=== PATIENT | female | born 1965 | race Two or more races ===

== ENCOUNTER 2018-06-30 19:08 | Emergency (ER) | payer OTHER ==
[~2018-06-30] VITALS: Ht 170.2 cm; Wt 90.7 kg
[~2018-06-30 19:08] MED LIST: PANADOL EXTRA500 MG
[2018-06-30] MEDS ORDERED: SYNTHROID75 MCG (19:34)
[2018-06-30] MEDS ORDERED: HYZAAR 100-251 EACH (19:34)
[2018-06-30] MEDS ORDERED: SEPTRA (19:35)
[2018-06-30] MEDS ORDERED: CIPRODEX OTIC7.5 ML OT (20:49)
[2018-06-30] MEDS ORDERED: CEFDINIR300 MG PO (20:49)
== END 2018-06-30 21:03 | disposition home or self-care (01) ==
LOC: ER 19:08
DX: H60.8X1 Other otitis externa, right ear (principal); H66.93 Otitis media, unspecified, bilateral

== ENCOUNTER 2019-05-23 08:56 | Emergency (ER) | payer OTHER ==
[~2019-05-23] VITALS: Ht 167.6 cm; Wt 88.5 kg
[~2019-05-23 08:56] MED LIST changes: +CEFDINIR300 MG PO; +CIPRODEX OTIC7.5 ML OT; +HYZAAR 100-251 EACH; +SEPTRA; +SYNTHROID75 MCG
== END 2019-05-23 17:22 | disposition home or self-care (01) ==
LOC: ER 08:56
DX: K57.92 Diverticulitis of intestine, part unspecified, without perforation or abscess without bleeding (principal); K80.20 Calculus of gallbladder without cholecystitis without obstruction; R10.31 Right lower quadrant pain

== ENCOUNTER 2019-10-08 18:42 | Emergency (ER) | payer OTHER ==
[~2019-10-08] VITALS: Ht 170.2 cm; Wt 89.8 kg
[2019-10-09] MEDS ORDERED: PRILOSEC OTC20 MG PO (23:57)
[2019-10-09] MEDS ORDERED: DICY20TA PO (23:57)
[2019-10-09] MEDS ORDERED: CIPRO500 MG PO (23:57)
== END 2019-10-08 23:57 | disposition home or self-care (01) ==
LOC: ER 18:42
DX: R10.13 Epigastric pain (principal); K66.0 Peritoneal adhesions (postprocedural) (postinfection)

== ENCOUNTER 2019-10-09 15:43 | Emergency (ER) | payer OTHER ==
[~2019-10-09] VITALS: Ht 170.2 cm; Wt 89.8 kg
[2019-10-09] MEDS ORDERED: PRILOSEC OTC20 MG PO (23:57)
[2019-10-09] MEDS ORDERED: CIPRO500 MG PO (23:57)
[2019-10-09] MEDS ORDERED: DICY20TA PO (23:57)
== END 2019-10-10 00:43 | disposition home or self-care (01) ==
LOC: ER 15:43
DX: K52.89 Other specified noninfective gastroenteritis and colitis (principal)

== ENCOUNTER 2022-01-30 14:05 | Outpatient (CLI) | payer OTHER ==
[~2022-01-30 14:05] MED LIST changes: +CIPRO500 MG PO; +DICY20TA PO; +PRILOSEC OTC20 MG PO
== END 2022-01-30 14:16 | disposition home or self-care (01) ==
LOC: SONOGRAMA 14:05
PROVIDERS: ATTEND Orthopaedic Surgery
DX: R19.00 Intra-abdominal and pelvic swelling, mass and lump, unspecified site (principal); M54.50 Low back pain, unspecified; M79.641 Pain in right hand

== ENCOUNTER 2022-01-30 15:57 | Outpatient (CLI) | payer OTHER | END 2022-01-30 16:06 | disposition home or self-care (01) | LOC: LAB 15:57 | DX: N91.2 Amenorrhea, unspecified (principal); N39.0 Urinary tract infection, site not specified ==

== ENCOUNTER 2022-11-17 21:23 | Emergency (ER) | payer OTHER ==
[~2022-11-17] VITALS: Ht 167.6 cm; Wt 90.7 kg
== END 2022-11-17 22:13 | disposition home or self-care (01) ==
LOC: ER 21:23
DX: M54.32 Sciatica, left side (principal)

== ENCOUNTER 2022-11-20 07:33 | Outpatient (CLI) | payer OTHER | END 2022-11-20 07:36 | disposition home or self-care (01) | LOC: NUCLEAR 07:33 | PROVIDERS: ATTEND General Practice | DX: I73.9 Peripheral vascular disease, unspecified (principal) ==

== ENCOUNTER 2022-12-11 06:31 | Outpatient (CLI) | payer OTHER | END 2022-12-11 06:37 | disposition home or self-care (01) | LOC: LAB 06:31 | DX: D64.9 Anemia, unspecified (principal); N39.0 Urinary tract infection, site not specified; E87.1 Hypo-osmolality and hyponatremia; E11.9 Type 2 diabetes mellitus without complications; E03.8 Other specified hypothyroidism; C18.9 Malignant neoplasm of colon, unspecified; E78.2 Mixed hyperlipidemia; K92.1 Melena; R80.8 Other proteinuria; E55.9 Vitamin D deficiency, unspecified ==

== ENCOUNTER 2024-09-29 09:51 | Emergency (ER) | payer OTHER ==
[~2024-09-29] VITALS: Ht 167.6 cm; Wt 81.6 kg
== END 2024-09-29 15:22 | disposition home or self-care (01) ==
LOC: ER 09:53
DX: S70.11XA Contusion of right thigh, initial encounter (principal); W18.39XA Other fall on same level, initial encounter; Y93.89 Activity, other specified; Y92.89 Other specified places as the place of occurrence of the external cause; I10 Essential (primary) hypertension; E03.8 Other specified hypothyroidism; M79.7 Fibromyalgia